=== PATIENT | male | born 1960 | race African-American/Black ===

== ENCOUNTER 2019-07-29 00:52 | Emergency (ER) | payer MEDICARE, BC ==
[~2019-07-29] VITALS: Ht 188 cm; Wt 77.1 kg
[~2019-07-29 00:52] MED LIST: AMLO10TA4 PO; CARV25TA2 PO
--- NOTE | 2019-07-29 01:45 | NUR ---
BIBS FOR EVALUATION OF L LEG WOUND.
[2019-07-29] MEDS ORDERED: SULFAMETH/TRIMETH 800/160 MG 1 UDTAB TABLET ONE (02:16)
[2019-07-29 02:24] LABS: BASOPHILS # (AUTO) 0.1 /CMM (0.0-0.2); BASOPHILS % (AUTO) 1.2 % (0.0-2.0); EOSINOPHILS % (AUTO) 12.1 % (0.0-6.0); HEMATOCRIT 37 % (39-51); HEMOGLOBIN 12.3 g/dL (13.5-17.5); LYMPHOCYTES # (AUTO) 1.1 /CMM (0.8-4.8); LYMPHOCYTES % (AUTO) 13.2 % (20.0-44.0); MEAN CORPUSCULAR HGB CONC 33 g/dl (31.0-36.0); MEAN CORPUSCULAR VOLUME 88 fL (80-96); MONOCYTES # (AUTO) 1.3 /CMM (0.1-1.30); MONOCYTES % (AUTO) 15.8 % (2.0-12.0); NEUTROPHILS # (AUTO) 4.7 /CMM (1.8-8.9); NEUTROPHILS % (AUTO) 57.7 % (43.0-81.0); PLATELET COUNT (AUTO) 247 /CMM (150-450); RED BLOOD CELL COUNT(AUTO) 4.16 MIL/uL (4.5-6.0); WHITE BLOOD COUNT (AUTO) 8.1 K/uL (4.3-11.0)
[2019-07-29] MEDS ORDERED: SULFAMETH/TRIMETH 800/160 MG 1 UDTAB TABLET PO ONE (02:30)
[2019-07-29 02:31] LABS: POTASSIUM 5.1 mmol/L (3.5-5.1)
[2019-07-29 02:36] LABS: ALBUMIN 2.7 g/dL (3.4-5.0); BILIRUBIN,DIRECT 0.4 mg/dL (0.0-0.2); BILIRUBIN,TOTAL 0.9 mg/dL (0.2-1.0); TOTAL PROTEIN, SERUM 8.5 g/dL (6.4-8.2)
[2019-07-29 02:37] LABS: CREATININE 10.5 mg/dL (0.6-1.3)
--- NOTE | 2019-07-29 02:37 | NUR ---
PER PT HE HAS HX OF ESRD W HD. HE RECEIVES HD ON ,, . HIS LAST HD WAS ON THE SUNDAY AND HE IS DUE FOR HD TMRW. HD ACCESS ON L ARM SHUNT
[2019-07-29] MEDS ORDERED: HYDROCODONE/APAP 10/325MG 1 EA TABLET ONE (03:28)
[2019-07-29] MEDS ORDERED: HYDROCODONE/APAP 10/325MG 1 EA TABLET PO ONE (03:30)
--- NOTE | 2019-07-29 03:30 | NUR ---
L ANTERIOR AND R SKIN PEELING MACHINE OPERATOR HILLMAN VENOUS ULCER WAS CLEANED W/ IODINE AND COVERED W/ DD AND SECURED W/ KERLIX ORDERED BY
--- NOTE | 2019-07-29 03:45 | NUR ---
Patient discharged to home in stable condition. Rx and Written and verbal after care instructions given. Patient and CG verbalized understanding of instruction. pt noted w/ steady gait upon d/c.
[2019-07-29 04:03] VITALS: BP 103/58
== END 2019-07-29 03:45 | disposition home or self-care (01) ==
LOC: ER 00:56
DX: L97.929 Non-pressure chronic ulcer of unspecified part of left lower leg with unspecified severity (principal); I10 Essential (primary) hypertension; Z98.890 Other specified postprocedural states; Z79.899 Other long term (current) drug therapy
CPT/HCPCS: 36415; 80048; 80076; 85025; 85730; 87040 ×2; 87070; 93971; 99284; A6253; A6403; 87186-TC

== ENCOUNTER 2019-08-07 13:07 | Outpatient (CLI) | payer MEDICARE, BC | END 2019-08-07 23:59 | disposition home or self-care (01) | LOC: WOU 13:07 | PROVIDERS: ATTEND Podiatrist Foot & Ankle Surgery | DX: I87.332 Chronic venous hypertension (idiopathic) with ulcer and inflammation of left lower extremity (principal); L97.823 Non-pressure chronic ulcer of other part of left lower leg with necrosis of muscle; L03.116 Cellulitis of left lower limb; I12.0 Hypertensive chronic kidney disease with stage 5 chronic kidney disease or end stage renal disease; N18.6 End stage renal disease; Z99.2 Dependence on renal dialysis; Z87.891 Personal history of nicotine dependence | CPT/HCPCS: 11043 ==

== ENCOUNTER 2019-08-28 11:40 | Outpatient (CLI) | payer MEDICARE, BC | END 2019-08-28 23:59 | disposition home or self-care (01) | LOC: WOU 11:40 | PROVIDERS: ATTEND Podiatrist Foot & Ankle Surgery | DX: I87.332 Chronic venous hypertension (idiopathic) with ulcer and inflammation of left lower extremity (principal); L97.823 Non-pressure chronic ulcer of other part of left lower leg with necrosis of muscle; I12.0 Hypertensive chronic kidney disease with stage 5 chronic kidney disease or end stage renal disease; N18.6 End stage renal disease; Z99.2 Dependence on renal dialysis; R26.2 Difficulty in walking, not elsewhere classified | CPT/HCPCS: 11043 ==

== ENCOUNTER 2019-09-17 21:47 | Inpatient (IN) | payer MEDICARE, BC ==
[~2019-09-17] VITALS: Ht 185.4 cm; Wt 73.0 kg
--- NOTE | 2019-09-17 21:55 | NUR ---
BIB EMS AND [employer] C/O PT NONCOMPLIANT WITH PSYCH MEDS. PT DENIES ANY PSYCH DISORDER. PT DENIES SI OR HI. PT DENIES ANY MEDICAL COMPLAINTS, PT IS AAOX4, NOT IN RESPIRAOTRY DISTRESS, HOOKED TO MONITOR. KEPT RESTED AND COMFORTABLE, WILL CONTINUE TO MONITOR.
--- NOTE | 2019-09-17 22:03 | NUR ---
PARAG AKBAR AT BEDSIDE FOR EVAL.
--- NOTE | 2019-09-17 22:20 | NUR ---
IV LINE ESTABLISHED, BLOOD DRAWN AND SENT TO LAB.
--- NOTE | 2019-09-17 22:24 | NUR ---
CLINIC LICENSED PRACTICAL NURSE AT BEDSIDE FOR XRAY.
[2019-09-17 22:28] LABS: BASOPHILS # (AUTO) 0.1 /CMM (0.0-0.2); BASOPHILS % (AUTO) 1.8 % (0.0-2.0); HEMATOCRIT 32 % (39-51); HEMOGLOBIN 10.2 g/dL (13.5-17.5); LYMPHOCYTES # (AUTO) 1.6 /CMM (0.8-4.8); LYMPHOCYTES % (AUTO) 22.8 % (20.0-44.0); MEAN CORPUSCULAR HGB CONC 32 g/dl (31.0-36.0); MEAN CORPUSCULAR VOLUME 89 fL (80-96); MONOCYTES # (AUTO) 1.2 /CMM (0.1-1.30); MONOCYTES % (AUTO) 16.3 % (2.0-12.0); NEUTROPHILS # (AUTO) 3.9 /CMM (1.8-8.9); NEUTROPHILS % (AUTO) 54.1 % (43.0-81.0); PLATELET COUNT (AUTO) 299 /CMM (150-450); RED BLOOD CELL COUNT(AUTO) 3.63 MIL/uL (4.5-6.0); WHITE BLOOD COUNT (AUTO) 7.1 K/uL (4.3-11.0)
[2019-09-17 22:39] LABS: ALANINE AMINOTRANSFERASE 47 U/L (12-78); ALCOHOL, BLOOD < 3 mg/dL (0-0); ALKALINE PHOSPHATASE 128 U/L (46-116); ASPARTATE AMINOTRANSFERASE 70 U/L (15-37); BILIRUBIN,DIRECT 0.3 mg/dL (0.0-0.2); BILIRUBIN,TOTAL 0.9 mg/dL (0.2-1.0); CALCIUM, SERUM 9.4 mg/dL (8.5-10.1); CARBON DIOXIDE 33 mmol/L (21-32); CHLORIDE 94 mmol/L (98-107); GLUCOSE 108 mg/dL (74-106); POTASSIUM 5.6 mmol/L (3.5-5.1); SODIUM SERUM 133 mmol/L (136-145); UREA NITROGEN, BLOOD 39 mg/dL (7-18)
--- NOTE | 2019-09-17 22:39 | NUR ---
PT IS WHEELED TO CT SCAN VIA [facility].
[2019-09-17 22:40] LABS: ACETAMINOPHEN 0 ug/ml (10-30); SALICYLATE 1.4 mg/dL (2.8-20.0)
[2019-09-17 22:41] LABS: CREATININE 8.2 mg/dL (0.6-1.3)
[2019-09-17 23:04] LABS: EOSINOPHILS % (MANUAL) 3 % (0-4); LYMPHOCYTES % (MANUAL) 27 % (16-48); MONOCYTES % (MANUAL) 13 % (0-11.0); NEUTROPHILS % (MANUAL) 57 (42-76)
[2019-09-17] MEDS ORDERED: VANCOMYCIN 1 GM in IV D5W 250 ML IV ONE (23:30)
[2019-09-17] MEDS ORDERED: VANCOMYCIN 1 GM VIAL ONE (23:34)
--- NOTE | 2019-09-17 23:39 | NUR ---
CALLED [employer]. GRANULIZING MACHINE OPERATOR WAS PAGED.
--- NOTE | 2019-09-17 23:56 | NUR ---
CALLED [facility] FOR MS BED
--- NOTE | 2019-09-18 00:10 | NUR ---
TECH AT BEDSIDE FOR US.
--- NOTE | 2019-09-18 00:16 | NUR ---
ROOM GIVEN:[phone]
--- NOTE | 2019-09-18 00:25 | NUR ---
REPORT GIVEN TO RICK HUDSON FOR TINO, WITH ONGOING ANTIBIOTIC.
[2019-09-18] MEDS ORDERED: ONDANSETRON HCL/PF 4 MG/2 ML VIAL IVP PRN (00:30)
[2019-09-18] MEDS ORDERED: ZOLPIDEM TARTRATE 5 MG TABLET PO PRN (00:30)
[2019-09-18] MEDS ORDERED: MAGNESIUM HYDROXIDE 30 ML UDC PO PRN (00:30)
[2019-09-18] MEDS ORDERED: HALOPERIDOL LACTATE INJ 5 MG/ML VIAL IM PRN (00:30)
[2019-09-18] MEDS ORDERED: LORAZEPAM INJ 2 MG/ML VIAL IV PRN (00:30)
[2019-09-18] MEDS ORDERED: ACETAMINOPHEN 325 MG TABLET PO PRN (00:30)
[2019-09-18] MEDS ORDERED: PIPERACILLIN /TAZOBACTAM 2.25 G in IV D5W 50 ML IV ONE (01:30)
[2019-09-18] MEDS ORDERED: PIPERACILLIN /TAZOBACTAM 2.25 G VIAL IV ONE (01:56)
[2019-09-18] MEDS ORDERED: HEPARIN SODIUM, PORCINE 5000 UNITS/1 ML VIAL IV ONE (02:00)
--- NOTE | 2019-09-18 02:15 | NUR ---
POWER HAMMER OPERATOR NOTES, PATIENT WITH DIALYSIS SHUNT IN LEFT ARM FOR HD, INTACT NO BLEEDING OR ABNORMALITY NOTED, + TRILL AND BRUIT, VS AT THIS TIME 120/69, 81, 18, 0/10, 97.9, 1005 RA.
--- NOTE | 2019-09-18 02:15 | NUR ---
RN MS ADMISSION NOTES, UPON COMING FROM BREAK GIVEN THIS ADMISSION PER CHARGE NURSE, ACCORDING TO HER PATIENT ARRIVED AT 0203, PATIENT ALREADY IN BED, CHARGE NURSE STATED PATIENT ARRIVED HERE @0203 VIA BED FROM 3 WEST AFTER THE ER PERSONNEL TOOK HIM THERE, FOR ACCOMMODATIONS PATIENT WAS BROUGHT HERE, UNDER MEDICAL SERVICES OF DR CASTELLON, WITH DX LEFT LEG CELLULITIS/ABSCESS, WITH SECONDARY DX PSYCHOSIS, PER CHARGE NURSE PATIENT IS IN HOLD 5150 PER POLICE, NO PAPERWORK IN CHART, ASKING ER FOR PROPER DOCUMENTATION, ACCORDING TO ER DR NOTES, PATIENT ON HOLD FOR DANGER TO SELF, NON COMPLIANT WITH PSYCH MEDICATION AND HD, PATIENT WITH H/O HTN, ESRD WITH HD, BIPOLAR DO, SCHIZOPHRENIA, WITH WOUND IN LEFT LEG, 1:1 SITTER FOR PATIENT TO KEEP HIM SAFE, PATIENT DENIES ANY SI/HI, AND STATED HAVING HD LAST SUNDAY AND TAKING ALL MEDS, CALL LIGHT W/I REACH, BED LOCKED AND LOWEST POSITION, ALL NEEDS, WILL CONTINUE TO MONITOR CLOSELY.
[2019-09-18 04:00] VITALS: BP 116/64
--- NOTE | 2019-09-18 06:40 | NUR ---
RN NOTES NEWLY ADMITTED PATIENT ORIGINALLY FROM ER & MOVED DOWN TO [facility] FROM 3W. PER 3W RN, PATIENT NEEDS A SITTER BECAUSE PATIENT WAS PLACED ON A HOLD BY [employer]. HOWEVER, THERE WAS NO PAPER DOCUMENTATION GIVEN. ORDER FOR SITTER STILL PLACED FOR SAFETY.
--- NOTE | 2019-09-18 06:42 | NUR ---
RN MS NOTES, PATIENT AWAKE A/O X3, ABLE TO VERBALIZED NEEDS, NO DISTRESS/SOB NOTED, NO SIGNIFICANT CHANGE IN CONDITION DURING THE NIGHT, WILL ENDORSE CONTINUITY OF CARE TO ONCOMING NURSE.
[2019-09-18 06:52] LABS: BASOPHILS # (AUTO) 0.1 /CMM (0.0-0.2); BASOPHILS % (AUTO) 1.3 % (0.0-2.0); EOSINOPHILS % (AUTO) 5.9 % (0.0-6.0); HEMATOCRIT 31 % (39-51); HEMOGLOBIN 10.1 g/dL (13.5-17.5); LYMPHOCYTES # (AUTO) 1.2 /CMM (0.8-4.8); LYMPHOCYTES % (AUTO) 15.8 % (20.0-44.0); MEAN CORPUSCULAR HGB CONC 32 g/dl (31.0-36.0); MEAN CORPUSCULAR VOLUME 88 fL (80-96); MONOCYTES # (AUTO) 1.2 /CMM (0.1-1.30); MONOCYTES % (AUTO) 14.8 % (2.0-12.0); NEUTROPHILS # (AUTO) 4.9 /CMM (1.8-8.9); NEUTROPHILS % (AUTO) 62.2 % (43.0-81.0); PLATELET COUNT (AUTO) 296 /CMM (150-450); RED BLOOD CELL COUNT(AUTO) 3.57 MIL/uL (4.5-6.0); WHITE BLOOD COUNT (AUTO) 7.8 K/uL (4.3-11.0)
[2019-09-18] MEDS ORDERED: FEE PK DOSING 1 MIN EA MC ONE (07:05)
[2019-09-18 07:19] LABS: ALBUMIN 2.6 g/dL (3.4-5.0); BILIRUBIN,TOTAL 0.8 mg/dL (0.2-1.0); CALCIUM, SERUM 9.1 mg/dL (8.5-10.1); MAGNESIUM 2.4 mg/dL (1.8-2.4); PHOSPHORUS 4.5 mg/dL (2.5-4.9); TOTAL PROTEIN, SERUM 8.2 g/dL (6.4-8.2)
[2019-09-18 07:20] LABS: CREATININE 8.9 mg/dL (0.6-1.3)
[2019-09-18] MEDS ORDERED: VANCOMYCIN 500 MG in IV D5W 100 ML IV PRN (07:30)
--- NOTE | 2019-09-18 07:30 | NUR ---
M/S RN NOTES PATIENT AWAKE, LYING IN BED, NO RESPIRATORY DISTRESS, NO C/O PAIN AT THIS TIME. SKIN WARM TO TOUCH. IV ACCESS SITE INTACT AND PATENT. PATIENT'S NEEDS ATTENDED. BED ON LOWEST LOCKED POSITION, CALL LIGHT WITHIN REACH. WILL CONTINUE TO MONITOR.
[2019-09-18 07:32] LABS: THYROID STIMULATING HORMONE 3.358 uIU/mL (0.358-3.74)
[2019-09-18 07:37] LABS: POTASSIUM 6.2 mmol/L (3.5-5.1)
--- NOTE | 2019-09-18 07:37 | NUR ---
M/S RN NOTES LAB REPORTED CRITICAL VALUE OF POTASSIUM 6.2, WILL NOTIFY .
[2019-09-18 08:00] VITALS: BP 116/64
--- NOTE | 2019-09-18 08:15 | NUR ---
M/S RN NOTES PATIENT WITH NO SI/HI. PATIENT VERY COOPERATIVE AND FOLLOWS DIRECTIONS.
[2019-09-18] MEDS: PIPERACILLIN /TAZOBACTAM 2.25 G in IV D5W 50 ML IV SCH ×2 (08:21→14:29)
[2019-09-18] MEDS: PANTOPRAZOLE 40 MG TABLET.DR PO SCH (08:22)
[2019-09-18] MEDS: DOCUSATE SODIUM 100 MG CAPSULE PO SCH ×2 (08:22→17:39)
[2019-09-18] MEDS: CARVEDILOL 12.5 MG TABLET PO SCH ×2 (08:22→21:00)
[2019-09-18] MEDS: AMLODIPINE BESYLATE 10 MG TABLET PO SCH (08:22)
[2019-09-18] MEDS: HEPARIN SODIUM, PORCINE 5000 UNITS/1 ML VIAL SQ SCH ×2 (08:23→22:28)
--- NOTE | 2019-09-18 08:29 | NUR ---
WOUND CARE CONSULT: PT PRESENTS WITH ABILITY TO TURN AND REPOSITION IN BED AND HE IS CONTINENT. DEFER TO DPM TEAM FOR WOUND TREATMENT PLAN. WILL SEE PRN.
[2019-09-18] MEDS ORDERED: DAKINS QUARTER STRENGTH (0.125%) 480 ML BOTTLE TOP SCH (09:00)
[2019-09-18] MEDS: HYDROCODONE/APAP 5/325MG 1 EACH TABLET PO PRN ×2 (09:55→17:37)
[2019-09-18 16:00] VITALS: BP 116/58
--- NOTE | 2019-09-18 16:20 | NUR ---
M/S RN NOTES PATIENT GETTING DIALYSIS BY RICK MEDLEY.
[2019-09-18] MEDS: WARFARIN SODIUM 5 MG TABLET PO SCH (17:38)
[2019-09-18] MEDS ORDERED: ALBUMIN 25% 25 GM in PREMIX 1 EA IV PRN (19:30)
[2019-09-18] MEDS ORDERED: VANCOMYCIN 1 GM in IV D5W 250 ML IV ONE (20:00)
--- NOTE | 2019-09-18 20:20 | NUR ---
RESTING N BED...HEMODIALYSIS NURSE AT BEDSIDE TO BEGIN TREATMENT
--- NOTE | 2019-09-18 20:40 | NUR ---
RCVG HEMODIALYSIS AT THIS TIME...WILL ADMISNISTER PO MEDS AND IV ANTBX UPON COMPLETION
[2019-09-19] VITALS: BP 109/57
--- NOTE | 2019-09-19 | NUR ---
RCVD CARE OF PATIENT AT THIS TIME....NO DISTRESS NOTED. DENIES COMPLAINTS OR OTHER. CALL LIGHT AVAILABLE AND WITHIN REACH. ENCOURAGED TO CALL FOR ASSIST IF NEEDED
[2019-09-19] MEDS: PIPERACILLIN /TAZOBACTAM 2.25 G in IV D5W 50 ML IV SCH ×4 (00:07→20:38)
[2019-09-19] MEDS: HYDROCODONE/APAP 5/325MG 1 EACH TABLET PO PRN ×3 (04:37→19:57)
--- NOTE | 2019-09-19 05:04 | NUR ---
REMAINS NPO AT THIS TIME X FOR NORCO FOR C/O PAIN WITH SIP OF WATER. REFUSED DRESSING CHANGE "SINCE iM HAVING SURGERY TODAY, YOU CAN JUST LEAVE IT ALONE". SITTER REMAINS AT BEDSIDE. PT VERY COOPERATIVE THROUGHOUT SHIFT. NO ACTING OUT. VERY PLEASENT.
[2019-09-19] MEDS ORDERED: VANCOMYCIN 500 MG in IV D5W 100 ML IV PRN (06:00)
[2019-09-19 07:17] LABS: BASOPHILS # (AUTO) 0.1 /CMM (0.0-0.2); EOSINOPHILS % (AUTO) 7.2 % (0.0-6.0); HEMATOCRIT 31 % (39-51); LYMPHOCYTES # (AUTO) 1.1 /CMM (0.8-4.8); LYMPHOCYTES % (AUTO) 13.3 % (20.0-44.0); MEAN CORPUSCULAR HGB CONC 32 g/dl (31.0-36.0); MEAN CORPUSCULAR VOLUME 88 fL (80-96); MONOCYTES # (AUTO) 1.1 /CMM (0.1-1.30); MONOCYTES % (AUTO) 14.4 % (2.0-12.0); NEUTROPHILS # (AUTO) 5.1 /CMM (1.8-8.9); NEUTROPHILS % (AUTO) 64.1 % (43.0-81.0); PLATELET COUNT (AUTO) 258 /CMM (150-450); RED BLOOD CELL COUNT(AUTO) 3.52 MIL/uL (4.5-6.0)
[2019-09-19 07:22] LABS: CALCIUM, SERUM 9.4 mg/dL (8.5-10.1); CREATININE 6.7 mg/dL (0.6-1.3); POTASSIUM 5.3 mmol/L (3.5-5.1)
[2019-09-19] MEDS: PANTOPRAZOLE 40 MG TABLET.DR PO SCH (07:30)
--- NOTE | 2019-09-19 07:56 | NUR ---
RN MS OPENING NOTES Patient received on room air, no sob noted, a/o x3. Patient denies pain at this time. No discomfort on his leg. R AC 22 SL. AV shunt left arm per report. Patient signed consent for wound debridement. Sitter at bedside last checked. Bed at the lowest setting, call light within reach, side rails up x2.
[2019-09-19 08:00] VITALS: BP 113/66
[2019-09-19] MEDS: AMLODIPINE BESYLATE 10 MG TABLET PO SCH (09:00)
[2019-09-19] MEDS: HEPARIN SODIUM, PORCINE 5000 UNITS/1 ML VIAL SQ SCH ×2 (09:00→20:42)
[2019-09-19] MEDS: DOCUSATE SODIUM 100 MG CAPSULE PO SCH ×2 (09:00→16:41)
[2019-09-19] MEDS: CARVEDILOL 12.5 MG TABLET PO SCH ×2 (09:00→20:40)
[2019-09-19] MEDS: DAKINS QUARTER STRENGTH (0.125%) 480 ML BOTTLE TOP SCH (09:06)
[2019-09-19] MEDS ORDERED: SEVOFLURANE 250 ML BOTTLE IH ONE (10:17)
[2019-09-19 16:00] VITALS: BP 114/66
[2019-09-19] MEDS: LACTOBACILLUS RHAMNOSUS GG 1 EACH CAP.SPRINK PO SCH (16:41)
[2019-09-19] MEDS: WARFARIN SODIUM 5 MG TABLET PO SCH (16:42)
--- NOTE | 2019-09-19 18:19 | NUR ---
RN MS CLOSING NOTES Patient remains on room air, no sob noted, a/o x3 and is s/p left leg wound debridement. Patient remains on RAC 22 gauge with Left AV shunt. Patient denies pain at this time, and denies any discomfort on his leg. Pain under control all shift. Bed at the lowest setting, call light within reach, side rails up x2. Will give report to NOC RN for TINO bedside.
[2019-09-20 04:00] VITALS: BP 97/55
[2019-09-20] MEDS: PIPERACILLIN /TAZOBACTAM 2.25 G in IV D5W 50 ML IV SCH ×3 (05:55→20:39)
[2019-09-20 06:36] LABS: BASOPHILS % (AUTO) 0.9 % (0.0-2.0); EOSINOPHILS % (AUTO) 11.4 % (0.0-6.0); HEMATOCRIT 30 % (39-51); HEMOGLOBIN 9.7 g/dL (13.5-17.5); LYMPHOCYTES # (AUTO) 1.1 /CMM (0.8-4.8); LYMPHOCYTES % (AUTO) 23.8 % (20.0-44.0); MEAN CORPUSCULAR HGB CONC 32 g/dl (31.0-36.0); MEAN CORPUSCULAR VOLUME 89 fL (80-96); MONOCYTES # (AUTO) 0.8 /CMM (0.1-1.30); MONOCYTES % (AUTO) 17.7 % (2.0-12.0); NEUTROPHILS # (AUTO) 2.1 /CMM (1.8-8.9); NEUTROPHILS % (AUTO) 46.2 % (43.0-81.0); PLATELET COUNT (AUTO) 235 /CMM (150-450); RED BLOOD CELL COUNT(AUTO) 3.41 MIL/uL (4.5-6.0); WHITE BLOOD COUNT (AUTO) 4.6 K/uL (4.3-11.0)
[2019-09-20 06:54] LABS: CALCIUM, SERUM 9.2 mg/dL (8.5-10.1); CREATININE 5.9 mg/dL (0.6-1.3); POTASSIUM 4.6 mmol/L (3.5-5.1)
--- NOTE | 2019-09-20 07:20 | NUR ---
RN MS OPENING NOTES RECEIVED REPORT AT BEDSIDE. PATIENT RESTING COMFORTABLY. ON ROOM AIR, RESPIRATION EVEN AND UNLABORED. NO SIGN OF DISTRESS NOTED. R AC #22 SL, PATENT, INTACT AND FLUSHED WELL. SAFETY PRECAUTION MAINTAINED. BED LOCKED AND LOW, SIDE RAILS UP X3, CALL LIGHT WITHIN REACH, URINAL AT BEDSIDE, AND SITTER AT BEDSIDE. WILL CONT' TO MONITOR.
[2019-09-20 08:00] VITALS: BP 101/74
[2019-09-20] MEDS: LACTOBACILLUS RHAMNOSUS GG 1 EACH CAP.SPRINK PO SCH ×2 (08:19→16:30)
[2019-09-20] MEDS: HEPARIN SODIUM, PORCINE 5000 UNITS/1 ML VIAL SQ SCH ×2 (08:19→20:43)
[2019-09-20] MEDS: DOCUSATE SODIUM 100 MG CAPSULE PO SCH ×2 (08:19→16:30)
[2019-09-20] MEDS: AMLODIPINE BESYLATE 10 MG TABLET PO SCH (08:24)
[2019-09-20] MEDS: PANTOPRAZOLE 40 MG TABLET.DR PO SCH (08:25)
[2019-09-20] MEDS: CARVEDILOL 12.5 MG TABLET PO SCH ×2 (08:25→20:39)
[2019-09-20] MEDS: DAKINS QUARTER STRENGTH (0.125%) 480 ML BOTTLE TOP SCH (08:26)
--- NOTE | 2019-09-20 10:16 | NUR ---
RN NOTE RUY WOUND NURSE AT BEDSIDE, CHANGED THE DEBRIDEMENT DRESSING AND DID WOUND CARE. PHOTO TAKEN.
[2019-09-20] MEDS: HYDROCODONE/APAP 5/325MG 1 EACH TABLET PO PRN ×2 (10:27→20:47)
--- NOTE | 2019-09-20 15:43 | NUR ---
MS RN NOTE CHECKED MICROBIOLOGY AND NOTICED PATIENT WAS REPORTED HAVING ESBL ON LEFT LEG 2 DAYS AGO. CHARGE NURSE MADE AWARE AND PUT PATIENT ON CONTACT PRECAUTION.
[2019-09-20 16:00] VITALS: BP 113/72
[2019-09-20] MEDS: WARFARIN SODIUM 5 MG TABLET PO SCH (16:47)
[2019-09-20] MEDS ORDERED: LEVOFLOXACIN 750 MG /D5W 150ML 750 MG in PREMIX 1 EA IV SCH (18:00)
--- NOTE | 2019-09-20 18:53 | NUR ---
rn ms closing notes Patient remains on room air, no sob noted, a/o x3. no significant change during the shift. patient was calm and cooperative. Denies pain at this time, and denies any discomfort on his leg. Pain under control all shift. Bed at the lowest setting, call light within reach, side rails up x2. sitter at bedside. Will give report to pm RN for TINO
--- NOTE | 2019-09-20 19:10 | NUR ---
MS RN NOTES RECEIVED PT IN BED AWAKE AND ABLE TO MAKE NEEDS KNOWN WITH SITTER AT BEDSIDE. PT A/O X3. RESPIRATIONS EVEN AND UNLABORED WITH NO S/S OF ACUTE DISTRESS OR SOB NOTED. PT DENIES PAIN AT THIS TIME. PT STATED THAT HE NEEDS TO LEAVE TOMORROW MORNING. SAFETY MEASURES IN PLACE WITH BED IN LOWEST LOCKED POSITION WITH SIDE RAILS UP X2. CALL LIGHT WITHIN REACH. WILL CONTINUE TO MONITOR.
[2019-09-20 20:00] VITALS: BP 118/64
--- NOTE | 2019-09-20 22:53 | NUR ---
MS CABRERA NOTES PT CONTINUES TO REFUSED ZOSYN AND VANCO ABX. PT STATE THAT IT WOULD BE OKAY TO RECEIVE BACTRIM. WILL CONTINUE TO MONITOR. Addendum: 09/20/19 at 2258 by TOSHA CONTRERAS RN WRONG PT.
[2019-09-21] VITALS: BP 115/67
[2019-09-21] MEDS: PIPERACILLIN /TAZOBACTAM 2.25 G in IV D5W 50 ML IV SCH (04:36)
[2019-09-21 04:41] VITALS: BP 117/78
--- NOTE | 2019-09-21 06:56 | NUR ---
MS RN NOTES PT IN BED AWAKE AND ABLE TO MAKE NEEDS KNOWN WITH SITTER AT BEDSIDE. PT A/O X3. RESPIRATIONS EVEN AND UNLABORED WITH NO S/S OF ACUTE DISTRESS OR SOB NOTED THROUGHOUT SHIFT. PT KEPT CLEAN, DRY, AND COMFORTABLE. SAFETY MEASURES IN PLACE WITH BED IN LOWEST LOCKED POSITION WITH SIDE RAILS UP X2. CALL LIGHT WITHIN REACH. WILL ENDORSE TO ONCOMING NURSE FOR TINO.
[2019-09-21 06:57] LABS: BASOPHILS # (AUTO) 0.1 /CMM (0.0-0.2); BASOPHILS % (AUTO) 1.5 % (0.0-2.0); EOSINOPHILS % (AUTO) 11.7 % (0.0-6.0); HEMATOCRIT 30 % (39-51); HEMOGLOBIN 9.5 g/dL (13.5-17.5); LYMPHOCYTES # (AUTO) 1.1 /CMM (0.8-4.8); LYMPHOCYTES % (AUTO) 25.8 % (20.0-44.0); MEAN CORPUSCULAR HGB CONC 32 g/dl (31.0-36.0); MEAN CORPUSCULAR VOLUME 88 fL (80-96); MONOCYTES # (AUTO) 0.8 /CMM (0.1-1.30); MONOCYTES % (AUTO) 17.9 % (2.0-12.0); NEUTROPHILS # (AUTO) 1.8 /CMM (1.8-8.9); NEUTROPHILS % (AUTO) 43.1 % (43.0-81.0); PLATELET COUNT (AUTO) 260 /CMM (150-450); RED BLOOD CELL COUNT(AUTO) 3.38 MIL/uL (4.5-6.0); WHITE BLOOD COUNT (AUTO) 4.2 K/uL (4.3-11.0)
[2019-09-21] MEDS: HYDROCODONE/APAP 5/325MG 1 EACH TABLET PO PRN (07:01)
--- NOTE | 2019-09-21 07:18 | NUR ---
Nurse Notes: received report from the night nurse Britton Patricio RN, patient is resting in bed. No complaints of pain, No shortness of breath.
[2019-09-21 07:32] LABS: CREATININE 7.2 mg/dL (0.6-1.3); POTASSIUM 6.1 mmol/L (3.5-5.1)
[2019-09-21 08:00] VITALS: BP 130/63
[2019-09-21] MEDS: LACTOBACILLUS RHAMNOSUS GG 1 EACH CAP.SPRINK PO SCH (08:43)
[2019-09-21] MEDS: DOCUSATE SODIUM 100 MG CAPSULE PO SCH (08:43)
[2019-09-21] MEDS: AMLODIPINE BESYLATE 10 MG TABLET PO SCH (08:44)
[2019-09-21] MEDS: CARVEDILOL 12.5 MG TABLET PO SCH (08:44)
[2019-09-21] MEDS: HEPARIN SODIUM, PORCINE 5000 UNITS/1 ML VIAL SQ SCH (08:47)
[2019-09-21] MEDS: PANTOPRAZOLE 40 MG TABLET.DR PO SCH (08:54)
--- NOTE | 2019-09-21 10:36 | NUR ---
Nurse Notes: Pharmacy called 20 minutes ago asking why Vancomycin IVPB was not given yesterday, nurse, myself told pharmacy was not here yesterday. He wanted me to give it. Patient and sitter stated Dialysis nurse said will schedule today dialysis. Patient had stated he had dialysis yesterday. Dialysis nurse stated patient did not have dialysis yesterday. Vancomycin not connected needed secondary IV line. Charge Nurse Alejo called the dialysis nurse, Dialysis will be done today.
[2019-09-21] MEDS ORDERED: MEROPENEM 500 MG in IV NS 0.9% 50 ML IV SCH (12:00)
[2019-09-21] MEDS: DAKINS QUARTER STRENGTH (0.125%) 480 ML BOTTLE TOP SCH (13:53)
[2019-09-21 16:52] VITALS: BP 122/74
[2019-09-21] MEDS ORDERED: WARFARIN SODIUM 5 MG TABLET PO SCH (17:00)
[2019-09-21] MEDS ORDERED: WARFARIN SODIUM 7.5 MG TABLET PO SCH (17:00)
--- NOTE | 2019-09-21 17:37 | NUR ---
Nurse Notes: came 30 minutes ago, want to know why patient can not goi home, 72 hours is up. stated the hold was place so that the patient can seek attention for wound care. Patient will have dialysis tomorrow and see wound care tomorrow. Patient received dose of meropenem. Dr Beth Kramer was called and left message. Sebastian ansarik was removed. Addendum: 09/21/19 at 1814 by NISREEN MARTINEZ RN Patient and did not want to talk to Dr Kramer, walk off the unit and the sitter took patient to the car on the wheelchair. Dr Ritchie Kramer called back at 1730, patient and came to the desk, and did not want to talk to doctor.
== END 2019-09-21 18:10 | disposition left against medical advice (07) | DRG 981 ==
LOC: ER 21:47 → MED 09-18 00:18 → MEDSG1 09-18 02:03
PROVIDERS: ADMIT Family Medicine; ATTEND Family Medicine
PROC: 0LBP0ZZ Excision of Left Lower Leg Tendon, Open Approach (ICD-10-PCS; principal; 2019-09-18)
PROC: 5A1D70Z Performance of Urinary Filtration, Intermittent, Less than 6 Hours Per Day (ICD-10-PCS; 2019-09-18)
PROC: 0LBP0ZZ Excision of Left Lower Leg Tendon, Open Approach (ICD-10-PCS; 2019-09-19)
PROC: 5A1D70Z Performance of Urinary Filtration, Intermittent, Less than 6 Hours Per Day (ICD-10-PCS; 2019-09-19)
DX: I87.312 Chronic venous hypertension (idiopathic) with ulcer of left lower extremity (principal); N18.6 End stage renal disease; I12.0 Hypertensive chronic kidney disease with stage 5 chronic kidney disease or end stage renal disease; E87.1 Hypo-osmolality and hyponatremia; E44.0 Moderate protein-calorie malnutrition; L97.829 Non-pressure chronic ulcer of other part of left lower leg with unspecified severity; I82.413 Acute embolism and thrombosis of femoral vein, bilateral; Z99.2 Dependence on renal dialysis; D63.1 Anemia in chronic kidney disease; E87.5 Hyperkalemia; E88.09 Other disorders of plasma-protein metabolism, not elsewhere classified; Z68.21 Body mass index [BMI] 21.0-21.9, adult; Z91.14 Patient's other noncompliance with medication regimen; Z91.15 Patient's noncompliance with renal dialysis; B96.20 Unspecified Escherichia coli [E. coli] as the cause of diseases classified elsewhere; B96.5 Pseudomonas (aeruginosa) (mallei) (pseudomallei) as the cause of diseases classified elsewhere; B95.2 Enterococcus as the cause of diseases classified elsewhere
CPT/HCPCS: 36415; 71045-TC; 73700-TC; 80048-TC; 80053-TC; 80061-TC; 80076-TC; 80202-TC; 82962-TC; 83605-TC; 83735-TC; 84100-TC; 84443-TC; 85025-TC; 85610-TC; 85730-TC; 86706; 87040-TC; 87070-TC; 87075-TC; 87081-TC; 87186-TC; 87340; 90935-TC; 93970-TC; A4216; A6253; A6403; A6407; G0378; G0480; J1644; J1956; J2185; J2543; J3370; J3490; J7060; P9047

== ENCOUNTER 2019-09-25 11:25 | Outpatient (CLI) | payer MEDICARE, BC | END 2019-09-25 23:59 | disposition home or self-care (01) | LOC: WOU 11:25 | PROVIDERS: ATTEND Podiatrist Foot & Ankle Surgery | DX: I87.332 Chronic venous hypertension (idiopathic) with ulcer and inflammation of left lower extremity (principal); L97.823 Non-pressure chronic ulcer of other part of left lower leg with necrosis of muscle; R26.2 Difficulty in walking, not elsewhere classified; I12.0 Hypertensive chronic kidney disease with stage 5 chronic kidney disease or end stage renal disease; N18.6 End stage renal disease; Z99.2 Dependence on renal dialysis | CPT/HCPCS: 11043 ==

== ENCOUNTER 2019-10-13 12:00 | Outpatient (CLI) | payer MEDICARE, BC | END 2019-10-13 23:59 | disposition home health service (06) | LOC: WOU 12:00 | PROVIDERS: ATTEND Podiatrist Foot & Ankle Surgery | DX: I87.332 Chronic venous hypertension (idiopathic) with ulcer and inflammation of left lower extremity (principal); L97.825 Non-pressure chronic ulcer of other part of left lower leg with muscle involvement without evidence of necrosis; I87.2 Venous insufficiency (chronic) (peripheral); I12.0 Hypertensive chronic kidney disease with stage 5 chronic kidney disease or end stage renal disease; N18.6 End stage renal disease; Z99.2 Dependence on renal dialysis | CPT/HCPCS: 11043; 97606-TC ==

== ENCOUNTER 2019-10-20 12:40 | Outpatient (CLI) | payer MEDICARE, BC | END 2019-10-20 23:59 | disposition home health service (06) | LOC: WOU 12:40 | PROVIDERS: ATTEND Podiatrist Foot & Ankle Surgery | DX: I87.332 Chronic venous hypertension (idiopathic) with ulcer and inflammation of left lower extremity (principal); L97.825 Non-pressure chronic ulcer of other part of left lower leg with muscle involvement without evidence of necrosis; I87.2 Venous insufficiency (chronic) (peripheral); I12.0 Hypertensive chronic kidney disease with stage 5 chronic kidney disease or end stage renal disease; N18.6 End stage renal disease; Z99.2 Dependence on renal dialysis; R26.2 Difficulty in walking, not elsewhere classified | CPT/HCPCS: 11042; 11045; 97606-TC ==

== ENCOUNTER 2019-10-30 10:00 | Outpatient (CLI) | payer MEDICARE, BC | END 2019-10-30 23:59 | disposition home health service (06) | LOC: WOU 10:00 | PROVIDERS: ATTEND Podiatrist Foot & Ankle Surgery | DX: I87.332 Chronic venous hypertension (idiopathic) with ulcer and inflammation of left lower extremity (principal); L97.825 Non-pressure chronic ulcer of other part of left lower leg with muscle involvement without evidence of necrosis; R26.2 Difficulty in walking, not elsewhere classified; I12.0 Hypertensive chronic kidney disease with stage 5 chronic kidney disease or end stage renal disease; N18.6 End stage renal disease; Z99.2 Dependence on renal dialysis; I87.2 Venous insufficiency (chronic) (peripheral) | CPT/HCPCS: 11042; 11045; 97606-TC ==

== ENCOUNTER 2019-11-06 13:00 | Outpatient (CLI) | payer MEDICARE, BC | END 2019-11-06 23:59 | disposition home health service (06) | LOC: WOU 13:00 | PROVIDERS: ATTEND Podiatrist Foot & Ankle Surgery | DX: I87.332 Chronic venous hypertension (idiopathic) with ulcer and inflammation of left lower extremity (principal); L97.825 Non-pressure chronic ulcer of other part of left lower leg with muscle involvement without evidence of necrosis; I12.0 Hypertensive chronic kidney disease with stage 5 chronic kidney disease or end stage renal disease; N18.6 End stage renal disease; Z99.2 Dependence on renal dialysis | CPT/HCPCS: 97606; C5271; Q4117 ==

== ENCOUNTER 2019-11-10 13:15 | Outpatient (CLI) | payer MEDICARE, BC | END 2019-11-10 23:59 | disposition home health service (06) | LOC: WOU 13:15 | PROVIDERS: ATTEND Podiatrist Foot & Ankle Surgery | DX: I87.322 Chronic venous hypertension (idiopathic) with inflammation of left lower extremity (principal); L97.825 Non-pressure chronic ulcer of other part of left lower leg with muscle involvement without evidence of necrosis; I87.2 Venous insufficiency (chronic) (peripheral); R26.2 Difficulty in walking, not elsewhere classified; I12.0 Hypertensive chronic kidney disease with stage 5 chronic kidney disease or end stage renal disease; N18.6 End stage renal disease; Z99.2 Dependence on renal dialysis | CPT/HCPCS: C5271; Q4117 ==

== ENCOUNTER 2019-11-13 10:07 | Outpatient (CLI) | payer MEDICARE, BC | END 2019-11-13 23:59 | disposition home health service (06) | LOC: WOU 10:07 | PROVIDERS: ATTEND Podiatrist Foot & Ankle Surgery | DX: I87.332 Chronic venous hypertension (idiopathic) with ulcer and inflammation of left lower extremity (principal); L97.825 Non-pressure chronic ulcer of other part of left lower leg with muscle involvement without evidence of necrosis; R26.2 Difficulty in walking, not elsewhere classified; I12.0 Hypertensive chronic kidney disease with stage 5 chronic kidney disease or end stage renal disease; N18.6 End stage renal disease; Z99.2 Dependence on renal dialysis | CPT/HCPCS: C5271; Q4117 ==

== ENCOUNTER 2019-11-24 10:24 | Outpatient (CLI) | payer MEDICARE, BC | END 2019-11-24 23:59 | disposition home health service (06) | LOC: WOU 10:24 | PROVIDERS: ATTEND Podiatrist Foot & Ankle Surgery | DX: I87.332 Chronic venous hypertension (idiopathic) with ulcer and inflammation of left lower extremity (principal); L97.825 Non-pressure chronic ulcer of other part of left lower leg with muscle involvement without evidence of necrosis; I12.0 Hypertensive chronic kidney disease with stage 5 chronic kidney disease or end stage renal disease; N18.6 End stage renal disease; Z99.2 Dependence on renal dialysis; R26.2 Difficulty in walking, not elsewhere classified | CPT/HCPCS: 11042; 11045 ==

== ENCOUNTER 2019-12-04 10:05 | Outpatient (CLI) | payer MEDICARE, BC | END 2019-12-04 23:59 | disposition home health service (06) | LOC: WOU 10:05 | PROVIDERS: ATTEND Podiatrist Foot & Ankle Surgery | DX: I87.332 Chronic venous hypertension (idiopathic) with ulcer and inflammation of left lower extremity (principal); L97.825 Non-pressure chronic ulcer of other part of left lower leg with muscle involvement without evidence of necrosis; I12.0 Hypertensive chronic kidney disease with stage 5 chronic kidney disease or end stage renal disease; N18.6 End stage renal disease; Z99.2 Dependence on renal dialysis; R26.2 Difficulty in walking, not elsewhere classified | CPT/HCPCS: 11042; 11045 ==

== ENCOUNTER 2019-12-11 10:23 | Outpatient (CLI) | payer MEDICARE, BC | END 2019-12-11 23:59 | disposition home health service (06) | LOC: WOU 10:23 | PROVIDERS: ATTEND Podiatrist Foot & Ankle Surgery | DX: I87.332 Chronic venous hypertension (idiopathic) with ulcer and inflammation of left lower extremity (principal); L97.825 Non-pressure chronic ulcer of other part of left lower leg with muscle involvement without evidence of necrosis; I87.2 Venous insufficiency (chronic) (peripheral); E11.22 Type 2 diabetes mellitus with diabetic chronic kidney disease; I12.0 Hypertensive chronic kidney disease with stage 5 chronic kidney disease or end stage renal disease; N18.6 End stage renal disease; Z99.2 Dependence on renal dialysis | CPT/HCPCS: 11042 ==

== ENCOUNTER 2019-12-18 10:10 | Outpatient (CLI) | payer MEDICARE, BC | END 2019-12-18 23:59 | disposition home health service (06) | LOC: WOU 10:10 | PROVIDERS: ATTEND Podiatrist Foot & Ankle Surgery | DX: I87.332 Chronic venous hypertension (idiopathic) with ulcer and inflammation of left lower extremity (principal); L97.822 Non-pressure chronic ulcer of other part of left lower leg with fat layer exposed; R26.2 Difficulty in walking, not elsewhere classified; I12.0 Hypertensive chronic kidney disease with stage 5 chronic kidney disease or end stage renal disease; N18.6 End stage renal disease; Z99.2 Dependence on renal dialysis; Z79.899 Other long term (current) drug therapy | CPT/HCPCS: 11042; 11045 ==

== ENCOUNTER 2019-12-29 12:22 | Outpatient (CLI) | payer BC, MEDICARE | END 2019-12-29 23:59 | disposition home health service (06) | LOC: WOU 12:22 | PROVIDERS: ATTEND Podiatrist Foot & Ankle Surgery | DX: I87.332 Chronic venous hypertension (idiopathic) with ulcer and inflammation of left lower extremity (principal); L97.822 Non-pressure chronic ulcer of other part of left lower leg with fat layer exposed; I12.0 Hypertensive chronic kidney disease with stage 5 chronic kidney disease or end stage renal disease; N18.6 End stage renal disease; Z99.2 Dependence on renal dialysis | CPT/HCPCS: 11042; 11045 ==

== ENCOUNTER 2020-01-15 10:25 | Outpatient (CLI) | payer MEDICARE, BC | END 2020-01-15 23:59 | disposition home health service (06) | LOC: WOU 10:25 | PROVIDERS: ATTEND Podiatrist Foot & Ankle Surgery | DX: I87.332 Chronic venous hypertension (idiopathic) with ulcer and inflammation of left lower extremity (principal); L97.822 Non-pressure chronic ulcer of other part of left lower leg with fat layer exposed; I12.0 Hypertensive chronic kidney disease with stage 5 chronic kidney disease or end stage renal disease; N18.6 End stage renal disease; Z99.2 Dependence on renal dialysis | CPT/HCPCS: 11042; 11045 ==